=== PATIENT | female | born 1980 | race Caucasian/White ===

== ENCOUNTER → 2020-08-13 | Outpatient (CLI) | payer MEDICAID, SELFPAY | END | disposition home or self-care (01) | LOC: MTDU 08-15 11:41 | PROVIDERS: Referring Provider Advanced Practice Midwife; Visit Provider Advanced Practice Midwife | DX: Z11.59 Encounter for screening for other viral diseases (principal) | CPT/HCPCS: 87635; C9803; U0003 ==

== ENCOUNTER 2020-08-19 07:00 | Inpatient (IN) | payer MEDICAID, SELFPAY ==
[2020-08-19] VITALS (44 sets, daily range): BP systolic 95–136; BP diastolic 51–87; PULSE 66–96; RESP 16; TEMP 36.1–37.5; O2SAT 93–100; BMI 26.9
[2020-08-19 08:03] LABS: Absolute Lymphocyte Count 1.48 X10^3/uL (0.83-4.51); Absolute Neutrophil Count 8.1 X10^3/uL (2.0-7.7); Basophil# 0.02 X10^3/uL; Basophil% 0.2 % (0-1); Eosinophil# 0.02 X10^3/uL; Eosinophils% 0.2 % (0-5); Hemoglobin 12.1 g/dL (12.0-15.0); Lymphocyte # 1.48 X10^3/ul (4.0); Lymphocyte % 13.8 % (19-41); Mean Corp Hgb Conc 33.6 g/dL (32-36); Mean Corpuscular Hgb 32.7 pg (27.0-32.0); Mean Corpuscular Volume 97.3 fL (81-99); Mean Platelet Vol. 8.9 fl (6.2-12.0); Monocyte# 0.98 X10^3/uL; Monocyte% 9.2 % (0-10); NRBC Flagged by Analyzer 0 % (0-5); Neutrophil # 8.13 X10^3/uL (2.7-7.7); Neutrophil % 75.9 % (47-70); Platelet Count 248 K/mm3 (150-450); RBC Distribution Width CV 12.8 % (11.6-14.6); RBC Distribution Width SD 45.1 fl (35.1-43.9); White Blood Count 10.7 K/mm3 (4.4-11.0)
[2020-08-19] MEDS: Lactated Ringers 1,000 ML 50 ML IV (08:09)
[2020-08-19] MEDS: 0.9% Normal Saline Single 100 ML IV.SOLN. IY (08:43)
[2020-08-19 08:47] LABS: Amphetamine Urine VISTA NEGATIVE (<1000 ng/mL); Barbiturate Urine VISTA NEGATIVE (< 200 ng/mL); Benzodiazepine Urine VISTA NEGATIVE (< 200 ng/mL); Cocaine Urine VISTA NEGATIVE (< 300 ng/mL); Ecstacy Urine VISTA NEGATIVE (< 500 ng/mL); Methadone Urine VISTA NEGATIVE (< 300 ng/mL); PCP Urine VISTA NEGATIVE (< 25 ng/mL); THC Urine VISTA NEGATIVE (< 50 ng/mL); Vista UDS pH Range 6
[2020-08-19] MEDS: Oxytocin 30 units/NS 500 ml 30 UNITS/500 ML IV.SOLN IV (08:54)
--- NOTE | 2020-08-19 10:35 | PCM.HP.OB ---
- Problem List (1) AMA (advanced maternal age) multigravida 35+ Status: Acute (2) Elective induction of labor planned Status: Acute (3) 39 weeks gestation of Status: Acute History Date of Admission: 08/19/20 Final LITZY: 08/23/20 Gestational age: 39 Weeks and 3 Days History of this : This is a 40 year-old, G [5], P [2], at 39.3 weeks gestational age that presents for induction of labor for AMA. Patient denies any loss of fluid, vaginal bleeding or contractions. Positive movement. Allergies No Known Allergies Allergy (Verified 08/19/20 07:32) Home Medications: Home Medications No122/Iron/Folic Acid [ Multi Tablet] 1 ea PO DAILY 08/19/20 busPIRone [Buspar] 5 mg PO TID 08/19/20 Smoking Status: Former smoker Substance Use Type: Marijuana, Anxiety Medications NST - FHR Rate Baby A Baseline: 135 Variability:: Moderate Accelerations:: 15 x 15 Decelerations:: None NST Reactive:: Yes FHR Category:: Category I Uterine Activity:: TOCO reading every 1-4 minutes- irregular History Past Pregnancies: Past Pregnancies Delivery Date Name GA/ Weeks Outcome Route Wt Infant Sex Labor Length Anesthesia Delivery Location Provider FOB Labs: O+ Rubella - immune HB- neg HB- neg RPR- NR HIV- NR GC/CH- neg GBS- neg TOX- negative on 07/23/20 COVID-19- awaiting results Expected Infant Delivery Method: Spontaneous Vaginal Review of Systems Constitutional: Denies: Anorexia Eyes: Denies: Blurred vision HEENT: Denies: Head Aches Cardiovascular: Denies: Chest Pain Respiratory: Denies: Cough, Shortness of Breath Gastrointestinal: Denies: Abdominal Pain Genitourinary: Denies: Dysuria Neurological: Denies: Headaches Physical Exam Vitals: Vital Signs Temp Pulse BP Pulse Ox 98.3 F 76 112/82 H 98 08/19/20 09:34 08/19/20 09:34 08/19/20 09:34 08/19/20 07:44 General: Alert, Oriented x3, Cooperative, No apparent distress HEENT: Atraumatic Cardiovascular: Regular rate Lungs: Normal air movement Abdomen: Soft, Non Tender, Gravid Neurological: Cranial nerves II-XII grossly intact Estimated gestational size: Appropriate for gestational size Presentation: Cephalic Cervix Dilation (cm): 2.0 Station: -2 Effacement (%): 70 Assessment/Plan All Active Problems AMA (advanced maternal age) multigravida 35+ (Acute) Elective induction of labor planned (Acute) 39 weeks gestation of (Acute) This is a 40 year-old, G [5], P [2], at 39.3 weeks gestational age for induction of labor for Advanced Maternal Age A/P Admit to labor and delivery Routine labs IV fluids per protocol GBS negative Fitzgerald bulb placed without difficulty Start Pitocin IV and titrate per policy Epidural when indicated Anticipate Dr. Melgar notified and is collaborating physician until 11 am
--- NOTE | 2020-08-19 10:48 | PCM.PN.BLA ---
Progress Note A/P Patient is a at 39.3 weeks gestation here for induction of labor for AMA. Category 1 tracing, NST reactive CE- 2/70/-[address] Pitocin started at 2 mu/ min Anticipate STROKE Vital Signs/Narrative: Vital Signs Temp Pulse BP Pulse Ox 08/19/20 09:34 98.3 F 76 112/82 H 08/19/20 07:44 98.1 F 77 121/72 H 98
[2020-08-19] MEDS: Lactated Ringers 500 ML 999 ML IV ×3 (10:52→15:48)
[2020-08-19] MEDS: fentaNYL-bupivacaine (epidural) 100 ML BAG EPIDURAL (11:52)
--- NOTE | 2020-08-19 12:49 | PN.OBGYN_ITS ---
Patient Problems: Active and Suspected Problems AMA (advanced maternal age) multigravida 35+ (Acute) Elective induction of labor planned (Acute) 39 weeks gestation of (Acute) Subjective: Patient seen at bedside. Just got epidural for pain relief. Denies any pain. Objective: CE- 4.56/80/-2 Pitocin at 4mu/min - Physical Exam Vitals/I&O's: Vital Signs Temp Pulse BP Pulse Ox 98.5 F 79 102/68 97 08/19/20 12:42 08/19/20 12:47 08/19/20 12:44 08/19/20 12:47 Weight: 162 lb 0.636 oz Body Mass Index (BMI) 26.9 Intake and Output for Last 24 Hours 08/17/20 08/18/20 08/19/20 23:59 23:59 23:59 Intake Total 786.90 / 786.90 Balance 786.90 / 786.90 General: Alert Lungs: Normal air movement Cardiovascular: Regular rate Neurological: Cranial nerves II-XII grossly intact Psych/Mental Status: Normal Affect Laboratory Results 08/19/20 07:35: WBC 10.7, RBC 3.70 L, Hgb 12.1, Hct 36.0 L, MCV 97.3, MCH 32.7 H , MCHC 33.6, RDW Std Deviation 45.1 H, RDW Coeff of Mine 12.8, Plt Count 248, MPV 8.9, Immature Gran % (Auto) 0.700, Neut % (Auto) 75.9 H, Lymph % (Auto) 13.8 L, Beaver % (Auto) 9.2, Eos % (Auto) 0.2, Baso % (Auto) 0.2, Absolute Neuts (auto) 8.1 H, Absolute Lymphs (auto) 1.48, Nucleated RBC % 0 08/19/20 07:35: Blood Type O POSITIVE, Antibody Screen NEGATIVE 08/19/20 08:10: Urine Opiates Screen NEGATIVE, Urine Methadone Screen NEGATIVE, Ur Barbiturates Screen NEGATIVE, Ur Phencyclidine Scrn NEGATIVE, Ur Amphetamines Screen NEGATIVE, U Methamphetamin-MDMA NEGATIVE, U Benzodiazepines Scrn NEGATIVE, Urine Cocaine Screen NEGATIVE, U Cannabinoids Screen NEGATIVE, Ur Drug Screen Comment Current Medications Acetaminophen (Tylenol) 325 - 650 mg PO Q4H PRN PRN PRN Reason: Pain Score 1-3/10 Al Hydroxide/Mg Hydroxide (Mylanta Ii) 15 - 30 ml PO Q4H PRN PRN PRN Reason: INDIGESTION Citric Acid/Sodium Citrate (Bicitra) 30 ml PO X1 PRN PRN Reason: Section Ephedrine Sulfate () 10 mg IV Q10M PRN PRN Reason: hypotension Ephedrine Sulfate () 10 mg IM Q30M PRN PRN Reason: hypotension Fentanyl Citrate (Sublimaze (100mcg Ampule)) 25 - 50 mcg IV Q2H PRN PRN PRN Reason: Pain Score 4-10/10 Fentanyl/Bupivacaine/Sodium Chlor () 0 ml EPIDURAL UD [facility]; Protocol Last Admin: 08/19/20 11:52 Dose: 100 ml Documented by: Oxytocin/Sodium Chloride () 30 units in 500 mls @ 2 mls/hr IV .Q250H [facility] Last Infusion: 08/19/20 10:01 Dose: 6 mls/hr Documented by: Lactated Ringer's () 500 mls @ 999 mls/hr IV .Q31M PRN PRN Reason: Epidural Last Infusion: 08/19/20 11:20 Dose: Infused Documented by: Lactated Ringer's () 500 mls @ 999 mls/hr IV .Q31M PRN PRN Reason: Corrective Measures Last Admin: 08/19/20 12:43 Dose: 999 mls/hr Documented by: Lactated Ringer's () 1,000 mls @ 50 mls/hr IV .Q20H [facility] Last Infusion: 08/19/20 12:43 Dose: 0 mls/hr Documented by: Naloxone HCl 4 mg/ Dextrose 504 mls @ 0 mls/hr IV .Q0M PRN; Protocol PRN Reason: To maintain Resp. rate >10 Nalbuphine HCl (Nubain) 5 mg IV Q3H PRN PRN PRN Reason: ITCHING Naloxone HCl (Narcan) 0.02 mg IV Q1M PRN PRN Reason: RR< 10 AND PT UNRESPONSIVE Ondansetron HCl (Zofran) 4 mg IV Q4H PRN PRN PRN Reason: NAUSEA Prochlorperazine Edisylate (Compazine Iv) 10 mg IV Q6H PRN PRN PRN Reason: NAUSEA Sodium Chloride () 10 - 40 ml IV X1 PRN PRN Reason: SALINE FLUSH Medical Necessity - Tobacco Use Smoking Status: Former smoker Assessment/Plan All Active Problems AMA (advanced maternal age) multigravida 35+ (Acute) Elective induction of labor planned (Acute) 39 weeks gestation of (Acute) A/P at 39.3 weeks gestation for induction of labor for AMA Category 1 tracing, NST reactive Continue present management A.R.O.M for clear fluid IUPC placed to assist with pitocin IV titration Anticipate
[2020-08-19] MEDS: Lactated Ringers 1,000 ML 200 ML IV (16:36)
[2020-08-19] MEDS: Oxytocin 30 units/NS 500 ml 30 UNITS/500 ML IV.SOLN 334 UNITS IV (18:20)
--- NOTE | 2020-08-19 18:47 | PCM.OPRPT ---
Problem List (1) AMA (advanced maternal age) multigravida 35+ Status: Acute (2) Elective induction of labor planned Status: Acute (3) 39 weeks gestation of Status: Acute Report of Operation Date of Procedure: 08/19/20 Vaginal Delivery Maternal Presentation: Medically Indicated Induction - AMA Method of Induction: Pitocin, Fitzgerald Bulb Amniotic Membrane Rupture Type: Artificial Rupture of Membrane time: 1230 Amniotic Fluid Description: Clear Final LITZY: 08/23/20 Gestational age: 39 Weeks and 3 Days Date of Procedure: 08/19/20 Pre-Operative Diagnosis: Term gestation, AMA Post-Operative Diagnosis: same, live male Surgery/ Procedure Performed: Spontaneous Vaginal Delivery Type of Anesthesia: Epidural Description of Procedure: Patient progressed to complete dilation and +1 station. Called to room. Patient pushing well with contractions and delivered infant head easily with minimal pushing effort. A loose nuchal cord x1 was easily reduced. The anterior shoulder delivered with less than 5 seconds of gentle traction. The remainder of delivered without difficulty and vigorous placed on maternal abdomen and attended to by nursing staff. The Pitocin infusion was initiated for active management of the third stage. The cord was clamped after 2 minutes and cut by FOB. Infant placed immediately skin to skin with patient. The placenta was delivered spontaneously and intact. A vaginal sweep was completed by me. A first degree perineal laceration was repaired in useable fashion using 3-0 Vicryl. and patient bonding well. Presentation: Vertex, ANIVAL Placental Delivery Description: Spontaneous Placenta Disposition: [facility] Cord Vessel Description: 3 Vessels Nuchal Cord Compression: Without compression Cord Entanglement: Around neck x 1, loose Estimated Blood Loss: 250 A gender: Male (1 minute): 8 (5 minute): 9 Episiotomy Description: None Laceration: Perineal Extension/lac, 1st degree Medications given after delivery: IV Pitocin Complications: None
[2020-08-19] MEDS: 0.9% Saline Lock 10 ML Syringe IV (21:10)
[2020-08-19] MEDS: busPIRone 5 MG Tablet PO (21:17)
[2020-08-19] MEDS: Ibuprofen 600 MG Tablet PO (22:59)
[2020-08-20 00:14] VITALS: BP 102/46; PULSE 79; RESP 18; TEMP 37
[2020-08-20] MEDS: Acetaminophen 500 MG Tablet 1000 MG PO ×2 (00:40→17:01)
[2020-08-20] MEDS: Ibuprofen 600 MG Tablet PO (04:05)
[2020-08-20 04:15] VITALS: BP 104/57; PULSE 61; RESP 16; TEMP 36.6
[2020-08-20] MEDS: busPIRone 5 MG Tablet PO ×2 (06:27→16:58)
[2020-08-20 08:20] VITALS: BP 107/69; PULSE 72; RESP 16; TEMP 36.1
--- NOTE | 2020-08-20 08:36 | DCINST_ITS ---
Discharge Diet: No Restrictions Discharge Activity: May Drive, May Shower May resume sexual activity in: 6 weeks Additional Instructions: If you experience any of the following, contact your healthcare provider. * Bleeding that soaks a pad every hour for 2 hours * Fever 100.4 or higher * Unrelieved incision or abdominal pain * Swelling, redness, discharge or bleeding from your incision or episiotomy site * Your incision begins to separate * Problems urinating (including inability to urinate or burning while urinating). * Visual changes * Severe headache * Flu-like symptoms * Pain or redness in one of both of your breasts * Pain, warmth, tenderness or swelling in your legs, especially the calf area * Frequent nausea and vomiting * Symptoms of depression or anxiety If you experience any of the following, call 911 or go to the nearest Emergency Room. * Chest pain * Problems breathing * Seizure activity * Partial or complete paralysis of a body part, slurred speech, weakness or drooping of the face, or a sudden inability to walk or hold your balance Allergies/Adverse Reactions: Allergies No Known Allergies Allergy (Verified 08/19/20 07:32) Medications to take at Discharge No122/Iron/Folic Acid [ Multi Tablet] 1 ea PO DAILY 08/19/20 busPIRone [Buspar] 5 mg PO TID 08/19/20 Acetaminophen [Tylenol] 1,000 mg PO Q8H PRN PRN tab 08/20/20 Ibuprofen [Motrin] 600 mg PO Q6H PRN PRN tab 08/20/20 Primary Care Physician: Care Physician,No Primary [Primary Care Provider] - Test Results: Test results from this visit will be discussed in further detail at your follow- up appointment, if applicable.
--- NOTE | 2020-08-20 08:36 | PCM.DCVAG ---
Discharge Diet: No Restrictions Discharge Activity: May Drive, May Shower May resume sexual activity in: 6 weeks Additional Instructions: If you experience any of the following, contact your healthcare provider. Bleeding that soaks a pad every hour for 2 hours Fever 100.4 or higher Unrelieved incision or abdominal pain Swelling, redness, discharge or bleeding from your incision or episiotomy site Your incision begins to separate Problems urinating (including inability to urinate or burning while urinating). Visual changes Severe headache Flu-like symptoms Pain or redness in one of both of your breasts Pain, warmth, tenderness or swelling in your legs, especially the calf area Frequent nausea and vomiting Symptoms of depression or anxiety If you experience any of the following, call 911 or go to the nearest Emergency Room. Chest pain Problems breathing Seizure activity Partial or complete paralysis of a body part, slurred speech, weakness or drooping of the face, or a sudden inability to walk or hold your balance Allergies/Adverse Reactions: Allergies No Known Allergies Allergy (Verified 08/19/20 07:32) Medications to take at Discharge No122/Iron/Folic Acid [ Multi Tablet] 1 ea PO DAILY 08/19/20 busPIRone [Buspar] 5 mg PO TID 08/19/20 Acetaminophen [Tylenol] 1,000 mg PO Q8H PRN PRN tab 08/20/20 Ibuprofen [Motrin] 600 mg PO Q6H PRN PRN tab 08/20/20 Primary Care Physician: Care Physician,No Primary [Primary Care Provider] - Test Results: Test results from this visit will be discussed in further detail at your follow-up appointment, if applicable.
--- NOTE | 2020-08-20 08:36 | PCM.PN.OB ---
Patient Problems: Active and Suspected Problems AMA (advanced maternal age) multigravida 35+ (Acute) Elective induction of labor planned (Acute) 39 weeks gestation of (Acute) Subjective: No complaints - Physical Exam Vitals/I&O's: Vital Signs Temp Pulse Resp BP Pulse Ox 97.8 F 61 16 104/57 L 100 08/20/20 04:15 08/20/20 04:15 08/20/20 04:15 08/20/20 04:15 08/19/20 19:22 Oxygen Delivery Method Room Air Weight: 162 lb 0.636 oz Body Mass Index (BMI) 26.9 Intake and Output for Last 24 Hours 08/18/20 08/19/20 08/20/20 23:59 23:59 23:59 Intake Total 3238.30 / 3238.30 Output Total 650 / 650 1949 / 1949 Balance 2588.30 / 2588.30 -1949 General: Alert, Oriented x3 Abdomen: Soft, Non Tender, Non-Distended - ff mid & below umb Extremities: No Calf Tenderness Laboratory Results 08/19/20 07:35: Blood Type O POSITIVE, Antibody Screen NEGATIVE 08/19/20 08:10: Urine Opiates Screen NEGATIVE, Urine Methadone Screen NEGATIVE, Ur Barbiturates Screen NEGATIVE, Ur Phencyclidine Scrn NEGATIVE, Ur Amphetamines Screen NEGATIVE, U Methamphetamin-MDMA NEGATIVE, U Benzodiazepines Scrn NEGATIVE, Urine Cocaine Screen NEGATIVE, U Cannabinoids Screen NEGATIVE Current Medications Acetaminophen (Tylenol) 1,000 mg PO Q8H PRN PRN PRN Reason: Pain Score 1-3/10 Last Admin: 08/20/20 00:40 Dose: 1,000 mg Documented by: Bisacodyl (Dulcolax) 10 mg RECTAL UD PRN PRN Reason: If no BM Buspirone HCl (Buspar) 5 mg PO TID ADRIANA Last Admin: 08/20/20 06:27 Dose: 5 mg Documented by: Dibucaine (Dibucaine) 1 applic TOPICAL TID PRN PRN; Protocol PRN Reason: Discomfort Hydrocortisone (Hytone) 1 applic TOPICAL TID PRN PRN; Protocol PRN Reason: Discomfort Ibuprofen (Motrin) 600 mg PO Q6H PRN PRN PRN Reason: Pain Score 1-3/10 Last Admin: 08/20/20 04:05 Dose: 600 mg Documented by: Methylergonovine Maleate (Methergine) 0.2 mg IM X1 PRN PRN Reason: Excess bleeding/uterine atony Ondansetron HCl (Zofran) 4 mg IV Q4H PRN PRN PRN Reason: Nausea Senna/Docusate Sodium (Senokot-S, Arianna-Colace) 1 - 2 tablet PO DAILY PRN PRN PRN Reason: Constipation Simethicone (Mylicon) 80 mg PO PCHS PRN PRN Reason: Indigestion/Stomach pain Sodium Chloride () 5 - 15 ml IV UD PRN PRN Reason: SALINE FLUSH Last Admin: 08/19/20 21:10 Dose: 10 ml Documented by: Medical Necessity - Tobacco Use Smoking Status: Former smoker Assessment/Plan All Active Problems AMA (advanced maternal age) multigravida 35+ (Acute) Elective induction of labor planned (Acute) 39 weeks gestation of (Acute) PPD#1 D/c home tonight per patient request
[2020-08-20 12:00] VITALS: BP 117/61; PULSE 74; RESP 15; TEMP 36.3
[2020-08-20 17:00] VITALS: BP 116/74; PULSE 81; RESP 16; TEMP 36.7
--- NOTE | 2020-08-20 17:20 | CASEMGMT ---
Social Work Assessment Labor and Delivery Unit Patient Address: [address] [place] [address], [place] [address] Phone number: [phone] Date of Referral: 08/19/2020 Time of Referral: 2236 Referred By: Mile Pineda CNM Date of Intervention: 08/20/2020 Time of Intervention: 172 Reason for Referral: THC positive in January; net negative upon admission History obtained from: Medical records and mother of baby (MOB) Cheryl Chowdhury; father of baby (FOB) Sha Chowdhury present for part of conversation. Household composition: MOB, FOB, and their 2 older children. Home situation is reported as safe and adequate. Patient's parent/guardian status: MOB and FOB are both 38 years old, and have been for 13 years, though together for 16. During private conversation with MOB, the MOB denies any form of abuse, control, intimidation with the FOB. MOB and FOB now have 3 children together: Roman, age 13; Henry, age 9; baby boy Quique, born 08.19.2018. Medical History: CAYLA is 5, para 2 now 3 after delivering Quique. MOB reports history of 2 miscarriages. care with Quique started at 13 weeks, at the end of January 2020. Noted a gap in care between 13 and 20 weeks, then regular thereafter. Infant delivered at 39 weeks gestation. weight 8 pounds 4 ounces. Apgars 8 and 9 at 1 and 5 minutes of life respectively. Educational Status: CAYLA has a bachelor's degree. No concerns regarding reading, writing, or learning comprehension. 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 FOFelipe has continued to work through the COVID pandemic, he is a tax commissioner [employer]inette Trotter. Supplies: MOB and FOB report to have all needed baby supplies including safe sleep space, car seat, clothing, diapers, wipes and bottles. MOB is planning to breast-feed. Childcare/Caregiver(s): MOB and FOB will be the primary caregivers of this . Transportation: No reported concerns. Programs/Agencies Involved: CAYLA has Medicaid care source for herself and the children. Plans to enroll in WIC. Denies any other agency involvement. Plan to take the baby to [facility] for follow-up care. Children Services/Legal Issues: No reported legal charges or concerns. MOB endorses history of children services 1 time when living in the [facility], and this occurred about 9 to 10 years ago. MOB reports there was an anonymous caller reporting safety issues with the banister at the top of the steps. MOB reports the children services worker came out one time, the family fixed the issue, and there were no further visits. Behavioral Health Issues: Mental Health History: MOB with a history of depression and anxiety, prescribed BuSpar for anxiety during this . MOB reports she was initially prescribed medication, took it for short time and then wanted to try off the medication. [place] through MOB's anxiety was still present so MOB decided to return to in the prescribed BuSpar. [place] depression screen was done with the MOB during this assessment and score was an 8, falling below the threshold for current depression. MOB denies ever thinking of suicide or self-harm. MOB reports that as the mother her children need her, so ending her life would never be an option. Substance Use History: MOB reports that prior to she drank regularly, a couple of beers a night. MOB reports that she did not realize she was until about 2-1/2 months along so there was some alcohol exposure early on. MOB reports cessation of alcohol after realization of . MOB endorses history of marijuana usage, with cessation shortly after finding out about . Medical record indicates the MOB with a history of using marijuana couple times a week and last reported use was the end of January. MOB reports marijuana did assist with helping MOB's anxiety. MOB denies any other illicit drug use history including heroin, meth, cocaine, pills. Family History: Not discussed. Drug Screens: Maternal drug screen positive for marijuana on 02/19/2020. Negative on 07/23/2020 at 35-week visit, and then again at delivery on 08/19/2020. Infant's urine drug screen is negative. Meconium drug screen is pending. Family/Social Stressors: MOB reports was unplanned and unexpected. MOB and FOB really ever planned for 2 children, so the adjustment to having a third child was a bit of an adjustment, and at times overwhelming to the MOB. MOB reports she is accepting, and happy about Quique however. Additional stress/changes in the last year include the COVID pandemic, and change of work routine and routine at home with the children school. Support Systems: MOB reports FOB, MOB mother, MOB sister and a best friend as support systems. MOB will have access to help at home going from her support system. Depression/Shaken Baby/Safe Sleeping educated to mood and anxiety disorders, risk factors present, and importance of seeking out support and help should symptoms arise and/or become distressing. MOB voiced understanding. Reviewed safe sleeping and provided written information on safe sleeping and shaking baby prevention. ASSESSMENT: Met with MOB and FOB in room, sleeping at in the bedside crib for the duration of social work visit. FOB did leave the room midway through assessment, at request of this sba underwriter so that depression screening could be completed. While speaking with MOB privately also addressed substance use history and domestic violence questions. While FOB in the room, FOB with a quiet demeanor and participated in conversation when elicited by the social media intern. MOB pleasant, talkative, in nondefensive. Appropriate eye contact. Appropriate mood and affect congruent to content discussed. Did become teary-eyed when discussion of substance use and potential children services involvement occurred. MOB reports cessation of marijuana around the time of seeking care, and voices concern that although cessation occurred, because MOB used marijuana on a regular basis that this substance could still be in the baby system. MOB reports that all substance use, alcohol and marijuana, were prior to knowledge. MOB reports understanding of recommendation not to use marijuana while breast-feeding, and reports intention to abstain from said substance. MOB reports counseling is not something that would be her first choice for support, and would prefer to use her personal support system. Would be open to continuing on BuSpar, or something similar if needed. MOB reports to have needed supplies to care for the baby, adequate support at home going, and also reports to have a positive and loving gonzalez with the baby. Baby did start to fuss in bedside crib near the end of social work visit and MOB attended to the baby, and checks to assure blanket was appropriately wrapped. No voiced concerns by staff regarding parent-child interactions or bonding. Safe Plan of Care for infant related to substance use: Abstinence of substances. If something changes in the future MOB reports she would ensure the children were out of the house and being cared for by family. PLAN: MOB and will discharge home. MOB provided with a [facility] resource list, as well as mood and anxiety packet. Information provided on safe sleeping and shaking baby prevention. Referral to [facility] children services related to substance exposed infant. MOB is aware of potential for children services involvement after home-going. No other services requested or indicated. -SISSY Ball, CARLOS *Information documented in this assessment generated with [employer] System*
--- NOTE | 2020-08-23 15:30 | CASEMGMT ---
Social Work Labor and Delivery Unit [facility]) at [phone] and requested call from lead worker of housekeeping and laundry for a referral. 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 Reported gap in care from the 13 week zoraida (where positive for marijuana was found) until 20 weeks. Reported alcohol exposure in the first trimester but cessation after knowledge of . Brief maternal and infant histories provided. [facility] would like to be called with meconium drug screen results. Updated MOB had negative drug screens twice in July and baby with negative in urine at delivery. -ALEX Ball, SPECIAL EDUCATION PRESCHOOL TEACHER
--- NOTE | 2020-08-28 09:47 | CASEMGMT ---
Social Work Labor and Delivery Called [facility] and spoke with Shreya in intake. Reported negative meconium drug screen results. Initial case was not screened. No further needs requested or indicated. ALEX Negron, BACK MAKER
== END 2020-08-20 19:37 | disposition home or self-care (01) | DRG 560 ==
PROVIDERS: Admitting Provider Advanced Practice Midwife; Referring Provider Advanced Practice Midwife; Visit Provider Advanced Practice Midwife
DX: O69.81X0 Labor and delivery complicated by cord around neck, without compression, not applicable or unspecified (principal); O70.0 First degree perineal laceration during delivery; Z3A.39 39 weeks gestation of pregnancy; Z37.0 Single live birth
CPT/HCPCS: 59025; 59050; 80307; 85025; 86850; 86900; 86901; 99218; J7120; 90686; A4216; G0378

== ENCOUNTER 2020-09-26 06:15 | Day surgery (SDC) | payer MEDICAID, SELFPAY ==
[2020-08-19 07:30] VITALS: BMI 26.9
--- NOTE | 2020-09-17 14:05 | PCM.HP.BLA ---
History and Physical Date of Admission: 09/26/20 Aneta Lockhart Physician Specialty: E [employer]UTION ARCHITECT H&P Signed Encounter Date: 09/17/2020 Expand AllCollapse All Hide copied text Suman for details Cheryl Chowdhury is a 40 year old female who presents for sterilization consultation. Patient has previously signed title 19 paperwork for permanent sterilization. Patient denies long-acting reversible contraceptive. Patient denies any concerns today denies chest pain, shortness of breath or dizziness. Patient understands the risk of regret. ? PAST MEDICAL HISTORY PAST MEDICAL HISTORY Diagnosis Date ? Depression ? ? Generalized anxiety disorder ? ? PAST SURGICAL HISTORY PAST SURGICAL HISTORY Procedure Laterality Date ? D+C ? ? ? 2 missed ab ? FAMILY HISTORY No family history on file. SOCIAL HISTORY Social History ? Tobacco Use ? Smoking status: Former Smoker ? ? Packs/day: 1.00 ? ? Types: Cigarettes ? Smokeless tobacco: Never Used ? Tobacco comment: cutting back Substance Use Topics ? Alcohol use: Yes ? Drug use: Yes ? ? Types: Marijuana ? CURRENT MEDICATIONS Current Outpatient Medications Medication Sig ? FENUGREEK SEED EXTRACT ORAL Take by mouth three times daily. ? busPIRone (BUSPAR) 5 mg tablet Take 1 tablet by mouth three times daily. ? 21/iron fu/folic acid ( COMPLETE ORAL) Take by mouth. ? ibuprofen (MOTRIN) 600 mg tablet Take 1 tablet by mouth every 6 hours as needed for Pain. ? simethicone, chewable (MYLICON) 80 mg chewable tablet Take 1 tablet by mouth every 6 hours as needed. ? No current facility-administered medications for this visit. ? Allergies As of Date: 09/17/2020 (No Known Allergies) Fully Assessed 09/17/2020 ? ? REVIEW OF SYSTEMS Abdomen: no pain Bladder: no dysuria.. Expanded ROS: GENERAL: Negative for fever Allergies and current medication updated:Yes ? EXAM: BP 110/60 Ht 5' 4.567 (1.64m) Wt 144 lb (65.3kg) LMP 11/30/2019 BMI 24.29 kg/(m^2). GENERAL: pleasant, female in no apparent distress HEENT: Normocephalic, atraumatic and mucus membranes moist NECK: full range of motion DERMATOLOGY: Normal, without lesions, non-icteric and non-hirsute CARDIAC: Regular rate and rhythm CHEST: Normal inspiratory effort NEURO: alert and oriented x3,exam grossly non-focal EXTREMITIES: normal ? ASSESSMENT AND PLAN: Encounter Diagnosis ? ? ICD-10-CM ? 1. Encounter for sterilization Z30.2 ? ? 2. Pt has been counseled on risks/benefits and alternatives of surgery including but not limited to anesthesia, bleeding, infection, injury to pelvic structures including bowel, bladder, ureters and vessels. Pt wishes to proceed with surgery at this time. 3. covid testing reviewed 4. Post op meds given 5. Risk of regret reviewed ? Aneta Pinto MD ? Procedure Criteria Procedure Type: Elective COVID Risk Discussion: The surgeon/proceduralist and patient have discussed in detail the risk of exposure to and/or potential harm posed by the COVID-19 virus with having a surgery/procedure at this time versus the risk of delaying the surgery/procedure. It is not possible to know either the risk of delaying the surgery or procedure or chance of getting an infection with perfect accuracy, but a joint decision was made between the patient and the surgeon/proceduralist to proceed at this time with the scheduled surgery/procedure as indicated on the consent form.
--- NOTE | 2020-09-19 13:35 | EKG12_ITS ---
Test Reason : PREOP Blood Pressure : / mmHG Vent. Rate : 065 BPM Atrial Rate : 065 BPM P-R Int : 130 ms QRS Dur : 084 ms QT Int : 396 ms P-R-T Axes : 048 019 032 degrees QTc Int : 411 ms Normal sinus rhythm Normal ECG No previous ECGs available Confirmed by SHAHIDA KAPLAN, NORAH ([id number]), ornamental plaster sticker ALEIDA HERNÁNDEZ ([id number]) on 09/23/2020 1:48:49 PM Referred By: Aneta Pinto Confirmed By:NORAH PINEDO MD
[2020-09-26] VITALS (8 sets, daily range): BP systolic 88–114; BP diastolic 58–75; PULSE 59–69; RESP 16–18; TEMP 36.1–36.3; O2SAT 96–99; BMI 24.5
[2020-09-26 06:35] LABS: Hematocrit 39.2 % (37-47); Mean Corp Hgb Conc 33.2 g/dL (32-36); Mean Corpuscular Volume 96.6 fL (81-99); Mean Platelet Vol. 8.2 fl (6.2-12.0); Platelet Count 285 K/mm3 (150-450); RBC Distribution Width CV 11.7 % (11.6-14.6); RBC Distribution Width SD 41.7 fl (35.1-43.9); Red Blood Count 4.06 M/mm3 (4.2-5.4); White Blood Count 5.9 K/mm3 (4.4-11.0)
[2020-09-26 06:39] LABS: Internal QC Validated? YES +Cl - CLEAR BKGD; Pregnancy, Urine Negative Negative
[2020-09-26] MEDS: Lactated Ringers 1,000 ML 100 ML IV (06:52)
--- NOTE | 2020-09-26 07:16 | DCINST_ITS ---
Discharge Diet: No Restrictions, - - Increase fluid intake for 48 hours. Discharge Activity: Return to Normal Activity, May Drive - when you are no longer taking narcotic pain medications., May Shower, May Take a Tub Bath - in 7 days., - - Ambulate often the next week after surgery. Return to work on:: 09/30/20 May shower in (days): 1 May resume sexual activity in: 1 week Lifting Restrictions: 20 Keep extremity elevated above heart level: Operative Extremity Additional Activity Instructions:: Nothing in the vagina for the next 5 days. Call your doctor if your incision/area has: Continuous Slow Oozing, Sudden Increased Bleeding, Increased Pain/ Swelling, Increased Redness, Foul Smelling Discharge, Swelling at the incision site Call your doctor if you observe: Fever of 101 or Higher Cleanse incision/area with: - - you have skin glue over incision sites- you may let soap and water run over them and dab dry. do not pick off glue. Allergies/Adverse Reactions: Allergies No Known Allergies Allergy (Verified 09/26/20 06:40) Medications to take at Discharge No122/Iron/Folic Acid [ Multi Tablet] 1 ea PO DAILY 08/19/20 busPIRone [Buspar] 5 mg PO TID 08/19/20 Acetaminophen [Tylenol] 1,000 mg PO Q8H PRN PRN tab 08/20/20 Ibuprofen [Motrin] 600 mg PO Q6H PRN PRN tab 08/20/20 Fenugreek Seed Extract [Fenugreek] 1,000 mg PO TID 09/16/20 Primary Care Physician: Care Physician,No Primary [Primary Care Provider] - Test Results: Test results from this visit will be discussed in further detail at your follow- up appointment, if applicable. Please Follow Up With: Aneta Pinto MD When: as scheduled [phone]
--- NOTE | 2020-09-26 07:30 | FALS_PTH ---
PATIENT: TASHI HENDRIX LOC: [facility] [place] U#:[id number] AGE/SX: 40/F ROOM: RE09/26/[address]: Dr. Aneta Pinto, MDDOB: 1980 BED: DIS: 09/26/2020 SPEC #: [id number] RECD: 09/26/20 10:59 STATUS: NEIL ANITA #: [id number] NELLY: 09/26/20 07:[address]: Aneta Pinto DEPT: SURGICAL PATHOLOGY RECD BY: Christiano Gallegos ENTERED: 09/26/20 11:24 SP TYPE: FALL TUBES OTHR DR: No Primary Care Phys Tissues: Fallopian tube Procedures: Surgery Specimen Level II HEADER OPERATION: Laparoscopy salpingectomy PRE-OP DIAGNOSIS: Sterilization TISSUE SUBMITTED: Bilateral fallopian tubes MICROSCOPIC DIAGNOSIS Bilateral fallopian tubes, salpingectomy: Bilateral fallopian tubes including fimbrial ends, no pathologic diagnosis. SJ:jone 09/27/20 MICROSCOPIC DESCRIPTION Slides are reviewed. GROSS DESCRIPTION Received in fixative is one container labeled with the patient's name and designated bilateral fallopian tubes. The specimen consists of two fallopian tubes with an average length of 5 cm and has an average diameter of 0.5 cm. Both fallopian tubes have normal fimbriated ends. No mass lesions are identified. Wearing Apparel Assembler sections are submitted in two cassettes as follows: 1 - one fallopian tube, 2 - the other fallopian tube. / AM:jone 09/26/20 TC:4 CPT: 75130 x2
--- NOTE | 2020-09-26 08:10 | PCM.OPRPT ---
Report of Operation Date of Procedure: 09/26/20 - START Pre-Operative Diagnosis: DESIRES STERILIZATION Post-Operative Diagnosis: SAME Surgery/Procedure Performed:: LAPAROSCOPIC BILATERAL SALPINGECTOMY Description of Surgical Findings:: NORMAL TUBAL TUBES AND OVARIES BILATERALLY windows security analyst: Renetta FUENTES Type of Anesthesia:: General Special Medications: 0.5 MARCAINE Specimen's removed: BILATERAL FALLOPIAN TUBES Drains: NONE Estimated Blood Loss (mL): <5CC Fluids Replaced: 700 Description of Procedure: After informed consent was obtained patient was taken to the operating room she was placed in supine position she was given anesthesia. She was then placed in the [facility] stirrups and she was prepped and draped in normal sterile fashion. Bladder was drained prior to the start of procedure. At this time attention was turned to the vaginal portion where weighted speculum placed at posterior fornix vagina single-tooth tenaculum was used to gently grasp the internal the cervix. uterus was gently sounded to approximately 8cm. Uterine manipulator was placed without difficulty. Legs then placed in parallel with the abdomen the tenaculum and the weighted speculum were removed. 2 towel clamps were placed at level of umbilicus. Marcaine was injected infraumbilical and a small incision was made. The 5 mm trocar was placed under direct visualization. CO2 gas was used to insufflate the intra-abdominal cavity. Upon inspection no gross abnormalities appreciated- the uterus tubes and ovaries appeared to be normal. At this time then the LLQ and RLQ ports were placed First Marcaine was injected and small incision was made a knife and the 5 mm trocars were placed. At this time then tubes were traced back to the fimbriated ends. Ligasure was used to coagulate and ligate along mesosalpinx bilaterally until tubes removed completely. Good hemostasis was appreciated. At this time procedure was deemed complete successful. The gas was desufflated on from the intra-abdominal cavity. The trochars were removed. Skin was closed using 4-0 Monocryl in a subcutaneous fashion. Dermabond glue was placed. Instrument lap and needle counts were correct ?2. The uterine manipulator was removed. Vaginal sweep was performed it was negative. There were no complications anticipated normal postoperative course for this patient. Grafts/Implants Used: NONE - Complications NONE - Admit VTE Documentation VTE Present on Admission: Yes VTE Mechan Device Prophylaxis: SCD's VTE Pharm Prophylaxis ordered?: No
[2020-09-26] MEDS: Bupivacaine Mpf 0.5% 30 ML VIAL (08:20)
== END 2020-09-26 10:02 | disposition home or self-care (01) ==
LOC: SDC 06:15 → AC 06:15
PROVIDERS: Anesthesiology; Referring Provider Obstetrics & Gynecology; Visit Provider Obstetrics & Gynecology
PROC: (CPT 58661; principal; 2020-09-26 07:15)
DX: Z30.2 Encounter for sterilization (principal); F32.9 Major depressive disorder, single episode, unspecified; F41.1 Generalized anxiety disorder; Z79.899 Other long term (current) drug therapy; Z20.828 Contact with and (suspected) exposure to other viral communicable diseases; Z87.891 Personal history of nicotine dependence
CPT/HCPCS: 00840; 58661; 81025; 85027; 87635; 88302; 93005; C9803; J7120; J2405; U0003